=== PATIENT | male | born 2000 | race Two or more races ===

== ENCOUNTER → 2024-10-11 | Emergency (ER) | payer OTHER ==
[~2024-10-11] VITALS: Ht 185.4 cm; Wt 86.2 kg
[2024-10-11 10:08] VITALS: BP 145/80; O2SAT 100
== END | disposition home or self-care (01) ==
LOC: ER 07:37
DX: S80.12XA Contusion of left lower leg, initial encounter (principal); S60.212A Contusion of left wrist, initial encounter; V49.9XXA Car occupant (driver) (passenger) injured in unspecified traffic accident, initial encounter; Y93.89 Activity, other specified; Y92.413 State road as the place of occurrence of the external cause; Y99.9 Unspecified external cause status